=== PATIENT | male | born 2000 ===

== ENCOUNTER 2018-01-15 12:34 | Outpatient (REF) | payer MEDICAID, SELFPAY ==
[2018-01-15 21:32] LABS: ALT 67 U/L (12-78); AST 28 U/L (15-37); Albumin 3.6 g/dL (3.4-5.0); Alkaline Phosphatase 92 U/L (46-116); Anion Gap 10.8 mmol/L (3-11); BUN 8 mg/dL (7-18); Bilirubin, Total 0.4 mg/dL (0.2-1.0); CO2 26.2 mmol/L (21.0-32.0); CREATININE 0.88 mg/dL (0.70-1.30); Chloride 104 mmol/L (98-107); Cholesterol 160 mg/dL (50-200); Glucose 122 mg/dL (70-100); HDL Cholesterol 35 mg/dL (40-60); LDL CHOLESTEROL 112 mg/dL (<100); Potassium 3.9 mmol/L (3.5-5.1); Sodium 141 mmol/L (136-145); Total Protein 7.3 g/dL (6.4-8.2); Triglyceride 132 mg/dL (30-150)
== END 2018-01-15 12:35 ==
LOC: NCHCN 12:34
PROVIDERS: PCP Registered Nurse; Visit Provider Registered Nurse
DX: E66.9 Obesity, unspecified (principal)
CPT/HCPCS: 80053; 80061; 83721

== ENCOUNTER 2020-01-29 19:07 | Outpatient (REF) | payer MEDICAID, SELFPAY ==
[2020-02-01 19:25] LABS: SARS-CoV-2 RNA Undetected (Undetected); SARS-CoV-2 Specimen Source Nasopharynx
== END 2020-01-29 19:27 ==
LOC: NCHCN 19:07
PROVIDERS: PCP Registered Nurse; Visit Provider Registered Nurse
DX: Z20.828 Contact with and (suspected) exposure to other viral communicable diseases (principal)
CPT/HCPCS: U0003

== ENCOUNTER 2020-05-25 20:52 | Outpatient (REF) | payer MEDICAID, SELFPAY ==
[2020-05-28 00:34] LABS: COVID-19 RT-PCR Result NEGATIVE (Negative)
== END 2020-05-25 21:12 ==
LOC: NCHCN 20:52
PROVIDERS: PCP Registered Nurse; Visit Provider Registered Nurse
DX: Z11.59 Encounter for screening for other viral diseases (principal)
CPT/HCPCS: U0003